=== PATIENT | male | born 1990 | race Caucasian/White ===

== ENCOUNTER 2016-08-20 00:55 | Emergency (ER) | payer BC ==
[~2016-08-20] VITALS: Ht 172.7 cm; Wt 68.6 kg
[2016-08-20 01:03] VITALS: Ht 172.7 cm; Wt 68.6 kg
[2016-08-20 01:05] VITALS: O2SAT 96
--- NOTE | 2016-08-20 01:19 | EMERGENCY ROOM VISIT NOTE ---
History Report prepared by Ernesto: Shira Mcnulty Under the Supervision of: Dr. Lauren Hollis D.O. First contact with patient: 01:05 Chief Complaint: ALCOHOL OVERDOSE Stated Complaint: ETOH Nursing Triage Summary: Patient arrived to ED via private vehicle with friends. Patient's friend states that he is intoxicated, [facility] and "was losing his pulse on the way here" Patient has had strong pulses since arrival to ED. Patient was reportedly consuming gin, vodka, rum and champagne in excess tonight. Patient was smoking pot as well. 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 HPI is limited due to intoxication. The patient states that he was at [employer]. The patient's friends states that the patient drank an assortment of liquer tonight at [employer] and smoked marijuana. Source of History: patient, friend History Limited By: intoxication Onset: OPERATING ROOM TECHNICIAN Position: other (global) Review of Systems See HPI for pertinent positives & negatives. A total of 10 systems reviewed and were otherwise negative. Past Medical & Surgical Medical Problems: (1) Attention deficit hyperactivity disorder (2) Bipolar disorder (3) depressive disorder NOS Family History Patient reports no known family medical history. Social History Smoking Status: Current Every Day Smoker Alcohol Use: occasionally Drug Use: marijuana Housing Status: lives with friends Occupation Status: employed Current/Historical Medications Unable to Obtain Active Prescriptions or Reported Meds Allergies Coded Allergies: No Known Allergies (Unverified , 01/09/16) Physical Exam Vital Signs Date Time Temp Pulse Resp B/P Pulse Ox O2 Delivery O2 Flow Rate FiO2 08/20/16 05:12 76 08/20/16 04:54 73 16 100/62 97 Room Air 08/20/16 02:33 87 18 92/66 97 Free Flow/Blowby 2.0 08/20/16 01:28 118/58 08/20/16 01:25 82 20 96 Room Air 08/20/16 01:05 96 Nasal Cannula 2.0 08/20/16 01:05 86 Room Air 08/20/16 01:04 99 08/20/16 01:03 90 16 109/102 92 Room Air 08/20/16 00:59 109/102 Physical Exam HEENT: Head - normocephalic and atraumatic Pupils are 2 mm and reactive to light. Extraocular eye muscles are intact, and sclera are anicteric. Nose - moist nasal mucosa without discharge. Mouth - moist buccal mucosa. Oropharynx is nonerythematous and there is no tonsillar exudate or edema noted. Neck: Supple; no JVD, nuchal rigidity, cervical lymphadenopathy. Heart: Tachycardic rate and regular rhythm. There is a normal S1 and S2 with no murmurs, clicks, or gallops appreciated. Lungs: Clear to auscultation bilaterally with no wheezes, rales, or rhonchi. Abdomen: Soft, completely nontender, nondistended, with good bowel sounds. There are no palpable pulsatile masses or hepatosplenomegaly. There is no guarding, rigidity, or rebound noted. Extremities: No evidence of cyanosis, clubbing, or edema. There are easily palpable peripheral pulses. Skin: warm and dry with good turgor and no rashes. Medical Decision & Procedures Laboratory Results 08/20/16 01:10 Test 08/20/16 01:00 08/20/16 01:10 Urine Opiates Screen NEG (NEG) Urine Methadone, Qualitative NEG (NEG) Urine Barbiturates NEG (NEG) Urine Phencyclidine (PCP) Level NEG (NEG) Ur Amphetamine/Methamphetamine NEG (NEG) MDMA (Ecstasy) Screen NEG (NEG) Urine Benzodiazepines Screen NEG (NEG) Urine Cocaine Metabolite NEG (NEG) Urine Marijuana (THC) NEG (NEG) Anion Gap 9.0 mmol/L (3-11) Est Creatinine Clear Calc Drug Dose 207.9 ml/min Estimated GFR () > 150.0 Estimated GFR (Non- 148.1 BUN/Creatinine Ratio 14.8 (10-20) Calcium Level 8.8 mg/dl (8.5-10.1) Ethyl Alcohol mg/dL 408.0 mg/dl (0-3) Laboratory results per my review. Medications Administered Medications (Trade) Dose Ordered Sig/Brock Route Start Time Stop Time Status Last Admin Dose Admin Potassium Chloride (Klor-Con Tab) 20 meq NOW STAT PO 08/20/16 05:15 08/20/16 05:16 DC 08/20/16 05:15 20 MEQ Procedure Medications Administered: Potassium Chloride ED Course 0057: Past medical records reviewed. The patient was evaluated in room A3. A complete history and physical exam was performed. The patient was placed in the prone position to avoid aspiration. He was observed on the pvc monitor and pulse oximeter. Laboratory studies were drawn as above. 0200: I reevaluated the patient and he was sleeping and hemodynamically stable. 0450: I reevaluated the patient and he is hemodynamically stable. 0515: Ordered Potassium Chloride 20 meq PO. 0542: I reevaluated the patient and he was asleep and hemodynamically stable. 0630: The patient is signed out to Dr. Inman at change of shift. Medical Decision The patient is a 26 year old male who presents to the ED with alcohol overdose. Differential diagnosis includes alcohol overdose, drug intoxication, head injury , hypothermia, and hyperglycemia. Labs: ETOH 408 Urine tox screen negative Potassium 3.1 Glucose 96 Normal Renal function This is a 26 old male patient who was drinking tonight at [facility]. He is significantly intoxicated. He was also using marijuana. The patient has no outward signs of trauma. He has remained hemodynamically stable here in the emergency department. Impression Primary Impression: Alcohol overdose Additional Impression: Hypokalemia Scribe Attestation The scribe's documentation has been prepared under my direction and personally reviewed by me in its entirety. I confirm that the note above accurately reflects all work, treatment, procedures, and medical decision making performed by me. Departure Information Dispostion Home / Self-Care Prescriptions Unable to Obtain Active Prescriptions or Reported Meds Referrals No Doctor, Assigned (PCP) Forms HOME CARE DOCUMENTATION FORM, IMPORTANT VISIT INFORMATION Patient Instructions A Signature Page, My [facility] Additional Instructions Rest. Take plenty of clear liquids. Take tylenol for headache. Avoid such excessive alcohol use in the future Take foods high in potassium
[2016-08-20 01:42] LABS: BENZODIAZEPINE, URINE NEG (NEG); COCAINE,URINE NEG (NEG); PHENCYCLIDINE, URINE NEG (NEG)
[2016-08-20 01:43] LABS: BLOOD UREA NITROGEN 8 mg/dl (7-18); BUN/CREATININE RATIO 14.8 (10-20); CALCIUM 8.8 mg/dl (8.5-10.1); CARBON DIOXIDE 24 mmol/L (21-32); CHLORIDE 108 mmol/L (98-107); CREATININE 0.53 mg/dl (0.60-1.40); GLUCOSE 96 mg/dl (70-99); POTASSIUM 3.1 mmol/L (3.5-5.1); SODIUM 141 mmol/L (136-145)
[2016-08-20] MEDS ORDERED: POTASSIUM CHLORIDE 20 MEQ TABCR PO STA (05:15)
[2016-08-20 10:55] VITALS: BP 118/69; PULSE 93; O2SAT 98
--- NOTE | 2016-08-20 13:48 | EMERGENCY ROOM VISIT NOTE ---
ED Visit Note Patient signed out to me by Dr. Hollis. Awaiting sobriety. Was discharged when sober.
== END 2016-08-20 10:56 | disposition home or self-care (01) ==
LOC: C.EDA 01:00
DX: T51.0X1A Toxic effect of ethanol, accidental (unintentional), initial encounter (principal); F10.129 Alcohol abuse with intoxication, unspecified; Y90.8 Blood alcohol level of 240 mg/100 ml or more; E87.6 Hypokalemia; F90.9 Attention-deficit hyperactivity disorder, unspecified type; F31.9 Bipolar disorder, unspecified; F17.200 Nicotine dependence, unspecified, uncomplicated; X58.XXXA Exposure to other specified factors, initial encounter; Y93.89 Activity, other specified; Y92.89 Other specified places as the place of occurrence of the external cause; Y99.8 Other external cause status